=== PATIENT | male | born 1960 | race Caucasian/White ===

== ENCOUNTER 2016-12-28 15:36 | Emergency (ER) | payer MEDICAID ==
--- NOTE | 2016-12-28 15:50 | Emergency Department Record ---
History of Present Illness - General Chief Complaint: Ankle/Foot Injury Stated Complaint: TWISTED RT ANKLE Time Seen by Provider: 12/28/16 15:39 Source: Patient Mode of Arrival: Ambulatory Limitations: No limitations - History of Present Illness Initial Comments: 56 yo male presents with right ankle pain. He twisted the ankle walking on Tuesday. He has had lateral ankle and leg pain. He has pain with weight bearing. No prior ankle fracture. He has sprained the ankle before. MD Complaint: Leg injury, Ankle injury -: Days(s) (2) Injury: Leg: Right, Knee: Right Type of Injury: Eversion Place: Home Severity: Moderate Improves With: Immobilization Worsens With: Palpation, Weight bearing Context: Walking Associated Symptoms: Swelling, Able to partially bear weight - Related Data Home Medications Medication Instructions Recorded Confirmed Last Taken Aspirin [Aspirin EC] 81 mg PO QHS 01/08/15 12/28/16 02/17/15 Bumetanide 1 mg PO DAILY tab 09/22/15 12/28/16 Unknown Previous Rx's Medication Instructions Recorded Hydrocodone/Acetaminophen [[place] 1 each PO Q8H PRN #20 tablet 12/28/16 7.5-325 Tablet] Allergies Allergy/AdvReac Type Severity Reaction Status Date / Time No Known Drug Allergies Allergy Verified 12/28/16 15:49 Review of Systems Constitutional: Denies: Chills, Fever, Malaise, Weakness Eyes: Denies: Eye discharge ENT: Denies: Congestion, Throat pain Respiratory: Denies: Cough Cardiovascular: Denies: Chest pain, Syncope Endocrine: Denies: Fatigue Gastrointestinal: Denies: Abdominal pain, Diarrhea, Nausea, Vomiting Genitourinary: Denies: Dysuria, Frequency, Hematuria Musculoskeletal: Reports: Arthralgia Skin: Denies: Change in color, Rash Neurological: Denies: Confusion, Headache Psychiatric: Denies: Anxiety Hematological/Lymphatic: Denies: Blood Clots, Easy bleeding, Easy bruising, Swollen glands Past Medical History - SOCIAL HISTORY Smoking Status: Former smoker - RESPIRATORY Hx Respiratory Disorders: Yes Hx of CPAP: Yes (needs a new mask, sleep study referral made as outpatient) - CARDIOVASCULAR Hx Cardio Disorders: No Comment:: elevated cholesterol - NEURO Hx Neuro Disorders: No - GI Hx GI Disorders: No Hx Reflux: No - Hx Genitourinary Disorders: No - ENDOCRINE Hx Endocrine Disorders: No Hx Diabetes: No Hx Thyroid Disease: No - MUSCULOSKELETAL Hx Musculoskeletal Disorders: Yes Hx Arthritis: Yes Hx Gout: Yes - PSYCH Hx Psych Problems: No - HEMATOLOGY/ONCOLOGY Hx Hematology/Oncology Disorders: No Family Medical History Hx Heart Disease: Father Physical Exam - General General Appearance: Alert, Oriented x3, Cooperative - Head Head exam: Atraumatic, Normal inspection - Eye Eye exam: Normal appearance - ENT ENT exam: Normal exam Ear exam: Normal external inspection Nasal Exam: Normal inspection Mouth exam: Normal external inspection - Neck Neck exam: Normal inspection - Respiratory Respiratory exam: Normal lung sounds bilaterally. negative: Respiratory distress - Cardiovascular Cardiovascular Exam: Regular rate, Normal rhythm, Normal heart sounds Peripheral Pulses: 2+: Dorsalis Pedis (R) - Rectal Rectal exam: Deferred - exam: Deferred - Extremities Extremities exam: Normal inspection, Tenderness Image of Full Body: 1 - tender lateral ankle, very mild bruising - Back Back exam: Reports: Full ROM. Denies: Tenderness - Neurological Neurological exam: Alert, Motor sensory deficit, Oriented X3 - Psychiatric Psychiatric exam: Normal affect, Normal mood. negative: Agitated, Anxious - Skin Skin exam: Dry, Intact, Normal color, Warm. negative: Cyanosis, Diaphoretic, Erythema Course - Reevaluation(s) Reevaluation #1: The XR was reviewed No actual fracture He will be placed in a DonJoy, crutches and follow up with PCP 12/28/16 16:16 Disposition Disposition: Discharge Clinical Impression: Ankle sprain Qualifiers: Encounter type: initial encounter Involved ligament of ankle: unspecified ligament Laterality: right Qualified Code(s): S93.401A - Sprain of unspecified ligament of right ankle, initial encounter Disposition: Home, Self-Care Condition: (1) Good Instructions: Ankle Sprain (ED) Additional Instructions: Ice and elevate Use the boot and crutches Call your doctor for [id number] up and recheck in the next week Prescriptions: Hydrocodone/Acetaminophen [[place] 7.5-325 Tablet] 1 each PO Q8H PRN #20 tablet PRN Reason: Pain - General Forms: Patient Portal Access Time of Disposition: 16:18 Quality - Quality Measures Quality Measures: N/A - Blood Pressure Screening Does Patient Have Any of the Following: No Blood Pressure Classification: Normal BP Reading Systolic Measurement: 106 Diastolic Measurement: 71 Screening for High Blood Pressure: < Normal BP, F/U Not Required > [G8783]
--- NOTE | 2016-12-29 14:39 | RADIOLOGY REPORT ---
EXAM: RIGHT ANKLE, THREE VIEWS HISTORY: ANTERIOR ANKLE PAIN TWO DAYS POST INJURY. DIFFUSE SWELLING. TECHNIQUE: Three views of the right ankle were obtained. Comparison: Three views of the right ankle dated 07/22/15. Encounter: Initial. FINDINGS: There is normal bone mineralization. A chronic triangular shaped ossicle is again noted adjacent to the tip of the medial malleolus, stable. No definite new fracture deformity is seen nor is there dislocation. The ankle mortise joint is symmetric. There are mild degenerative changes of the tibiotalar joint. There is diffuse soft tissue swelling. Mild calcaneal spurring persists. IMPRESSION: 1. NO DEFINITE ACUTE FRACTURE NOR DISLOCATION WHEN COMPARED TO THE 07/22/15 EXAMINATION. CHRONIC APPEARING OSSICLE REDEMONSTRATED ADJACENT TO THE TIP OF THE MEDIAL MALLEOLUS. 2. MILD DEGENERATIVE CHANGES OF THE TIBIOTALAR JOINT. 3. DIFFUSE SOFT TISSUE SWELLING. 4. MILD CALCANEAL SPURRING REDEMONSTRATED. JOB NUMBER: [id number] [facility]
== END 2016-12-28 16:57 | disposition home or self-care (01) ==
LOC: ER 15:36
DX: S93.401A Sprain of unspecified ligament of right ankle, initial encounter (principal); X50.1XXA Overexertion from prolonged static or awkward postures, initial encounter; Y92.009 Unspecified place in unspecified non-institutional (private) residence as the place of occurrence of the external cause
CPT/HCPCS: 99283

== ENCOUNTER 2017-08-26 07:55 | Day surgery (SDC) | payer MEDICARE, MEDICAID ==
[2017-08-26] MEDS ORDERED: FENTANYL PF 100MCG/2ML VIAL IV ONE (07:56)
[2017-08-26] MEDS ORDERED: PROPOFOL 10 MG/ML VIAL IV ONE (07:56)
[2017-08-26] MEDS ORDERED: LIDOCAINE 2% MDV (20MG/ML) 20ML VIAL IV ONE (07:56)
--- NOTE | 2017-08-29 12:30 | Operative Note ---
DATE OF SURGERY: 08/26/2017 SURGEON: Parker Snider MD OPERATION: ESOPHAGOGASTRODUODENOSCOPY. INDICATIONS: This is a 57-year-old male with history of thickened esophagus who presented for esophagogastroduodenoscopy. POSTOPERATIVE DIAGNOSES: 1. Mild distal esophagitis. 2. Mild erosive gastritis. 3. Normal duodenum. ANESTHESIA: Sedation is per Anesthesia. Pulse oximetry was monitored throughout the procedure to maintain O2 saturation of 90% or greater. Supplemental oxygen was administered via nasal cannula. Cardiac and vital signs were monitored throughout the duration of the procedure, and they were stable. The procedure of esophagogastroduodenoscopy and risks and benefits of the procedure, including the risk of bleeding and perforation, among others, were explained to the patient who voiced understanding and agreed to have the procedure done. Physical examination was performed, and the patient was found stable for sedation. PROCEDURE: The patient was placed in the left lateral position. Sedation was initiated. A plastic bite block was inserted into the oral cavity. The Olympus [id number] gastroscope was introduced into the oral cavity and advanced to the proximal esophagus without difficulty. The esophageal mucosa was carefully examined upon introduction of the gastroscope. The proximal, mid, and distal esophageal mucosa appeared normal. The gastroscope was then advanced into the stomach, and surveillance of the stomach revealed diffuse erythema along the gastric body and antrum but no ulcers were noted. The gastroscope was then advanced into the descending duodenum without difficulty. The duodenal bulb and descending duodenum appeared normal. The gastroscope was then withdrawn into the stomach and retroflexion was performed. There were no other lesions noted. The gastroscope was then withdrawn while carefully examining the gastric and esophageal mucosa. No other lesions noted. At the GE junction level, there was mild Z line irregularity, and multiple biopsies were obtained. There were no mass lesions noted. The gastroscope was then withdrawn and the procedure was terminated. The patient tolerated the procedure well without any immediate complications. He remained with stable vital signs and was transferred to the recovery room. RECOMMENDATIONS: The patient is to continue on his proton pump inhibitors and I will see him back as needed. Thank you for allowing me to participate in the care of your patient. CC: EDUARD Rios
== END 2017-08-26 09:57 | disposition home or self-care (01) ==
LOC: HOP 07:55
PROVIDERS: ATTEND Internal Medicine Gastroenterology
DX: K20.9 Esophagitis, unspecified (principal); K29.60 Other gastritis without bleeding; E11.9 Type 2 diabetes mellitus without complications; Z79.84 Long term (current) use of oral hypoglycemic drugs; F41.9 Anxiety disorder, unspecified; E78.00 Pure hypercholesterolemia, unspecified
CPT/HCPCS: 43235; 00731; 88305; 88313; J3010

== ENCOUNTER 2018-09-19 10:46 | Emergency (ER) | payer MEDICARE ==
[2018-09-19] MEDS ORDERED: IPRATROPIUM/ALBUTEROL (0.5MG/3MG) NEB INH ONE (11:05)
--- NOTE | 2018-09-19 11:12 | Emergency Department Record ---
History of Present Illness - General Chief Complaint: Difficulty Breathing Stated Complaint: CHEST PAIN,SOB Time Seen by Provider: 09/19/18 10:50 Source: Patient Mode of Arrival: Wheelchair Limitations: No limitations - History of Present Illness Initial Comments: pt has been very sob this am. he also had some chest discomfort this am. MD Complaint: Chest pain, Shortness of breath Onset/Timin -: Hour(s) Consistency: Intermittent Improves With: Bronchodilators Worsens With: Exertion Known History Of: Diabetes Context: Other Associated Symptoms: Chest pain Treatments Prior to Arrival: Bronchodilator - Related Data Home Oxygen Therapy: No Previous Rx's Medication Instructions Recorded Doxycycline Hyclate 100 mg PO BID #14 cap 09/19/18 Prednisone [Prednisone 20Mg] 20 mg PO Q12HR #8 tab 09/19/18 Allergies Allergy/AdvReac Type Severity Reaction Status Date / Time No Known Drug Allergies Allergy Verified 09/19/18 10:51 Travel Screening - Travel/Exposure Within Last 30 Days Have you traveled within the last 30 days?: No - Travel/Exposure Within Last Year Have you traveled outside the [place] in the last year?: No - Additonal Travel Details Have you been exposed to anyone with a communicable illness?: No - Travel Symptoms Symptom Screening: None Review of Systems Reviewed: No additional complaints except as noted below Constitutional: Reports: As per HPI. Denies: Chills, Fever, Malaise, Night sweats, Weakness, Weight change Eyes: Reports: As per HPI. Denies: Eye discharge, Eye pain, Photophobia, Vision change ENT: Reports: As per HPI. Denies: Congestion, Dental pain, Ear pain, Epistaxis, Hearing loss, Throat pain Respiratory: Reports: As per HPI. Denies: Cough, Dyspnea, Hemoptysis, Stridor, Wheezes Cardiovascular: Reports: As per HPI. Denies: Arrhythmia, Chest pain, Dyspnea on exertion, Edema, Murmurs, Orthopnea, Palpitations, Paroxysmal nocturnal dyspnea, Rheumatic Fever, Syncope Endocrine: Reports: As per HPI. Denies: Fatigue, Heat or cold intolerance, Polydipsia, Polyuria Gastrointestinal: Reports: As per HPI. Denies: Abdominal pain, Constipation, Diarrhea, Hematemesis, Hematochezia, Melena, Nausea, Vomiting Genitourinary: Reports: As per HPI. Denies: Dysuria, Frequency, Hematuria, Incontinence, Retention, Testicular pain, Testicular mass, Urgency Musculoskeletal: Reports: As per HPI. Denies: Arthralgia, Back pain, Gout, Joint swelling, Myalgia, Neck pain Skin: Reports: As per HPI. Denies: Bruising, Change in color, Change in hair/nails, Lesions, Pruritus, Rash Neurological: Reports: As per HPI. Denies: Abnormal gait, Confusion, Headache, Numbness, Paresthesias, Seizure, Tingling, Tremors, Vertigo, Weakness Psychiatric: Reports: As per HPI. Denies: Anxiety, Auditory hallucinations, Depression, Homicidal thoughts, Suicidal thoughts, Visual hallucinations Hematological/Lymphatic: Reports: As per HPI. Denies: Anemia, Blood Clots, Easy bleeding, Easy bruising, Swollen glands Past Medical History - SOCIAL HISTORY Smoking Status: Former smoker Alcohol Use: None Drug Use: None - RESPIRATORY Hx Respiratory Disorders: Yes Hx Sleep Apnea: Yes Hx of CPAP: Yes (needs a new mask, sleep study referral made as outpatient) - CARDIOVASCULAR Hx Cardio Disorders: No Comment:: elevated cholesterol - NEURO Hx Neuro Disorders: No - GI Hx GI Disorders: No Hx Reflux: No - Hx Genitourinary Disorders: No - ENDOCRINE Hx Endocrine Disorders: No Hx Diabetes: No - MUSCULOSKELETAL Hx Musculoskeletal Disorders: Yes Hx Arthritis: Yes Hx Gout: Yes - PSYCH Hx Psych Problems: No - HEMATOLOGY/ONCOLOGY Hx Hematology/Oncology Disorders: No Family Medical History Any Significant Family History?: Yes Hx Heart Disease: Father Physical Exam - General General Appearance: Alert, Oriented x3, Cooperative, Mild distress - Head Head exam: Normal inspection - Eye Eye exam: Normal appearance, PERRL, EOMI Pupils: Normal accommodation - ENT ENT exam: Normal exam, Mucous membranes moist, Normal external ear exam, Normal orophraynx Ear exam: Normal external inspection. negative: External canal tenderness Nasal Exam: Normal inspection. negative: Discharge, Sinus tenderness Mouth exam: Normal external inspection, Tongue normal Teeth exam: Normal inspection. negative: Dental caries Throat exam: Normal inspection. negative: Tonsillar erythema, Tonsillar exudate - Neck Neck exam: Normal inspection, Full ROM. negative: Tenderness - Respiratory Respiratory exam: Normal lung sounds bilaterally. negative: Respiratory distress - Cardiovascular Cardiovascular Exam: Regular rate, Normal rhythm, Normal heart sounds - GI/Abdominal GI/Abdominal exam: Soft, Normal bowel sounds. negative: Tenderness - Rectal Rectal exam: Deferred - exam: Deferred - Extremities Extremities exam: Normal inspection, Full ROM, Normal capillary refill. negative: Tenderness - Back Back exam: Reports: Normal inspection, Full ROM. Denies: Muscle spasm, Rash noted, Tenderness - Neurological Neurological exam: Alert, CN II-XII intact, Normal gait, Oriented X3 - Psychiatric Psychiatric exam: Normal affect, Normal mood - Skin Skin exam: Dry, Intact, Normal color, Warm Course Vital Signs 09/19/18 10:57 Temperature 99.9 F H Pulse Rate 90 Respiratory 20 Rate Blood Pressure 126/84 Pulse Ox 96 - Reevaluation(s) Reevaluation #1: 09/19/18 16:01 pt feels better Medical Decision Making - Lab Data Result diagrams: 09/19/18 11:05 09/19/18 11:05 Disposition Disposition: Discharge Clinical Impression: Shortness of breath Disposition: Home, Self-Care Condition: (1) Good Instructions: Dyspnea (ED) Additional Instructions: follow up with family doctor. return sooner if worse. Prescriptions: Prednisone [Prednisone 20Mg] 20 mg PO Q12HR #8 tab Doxycycline Hyclate 100 mg PO BID #14 cap Forms: Patient Portal Access Quality - Quality Measures Quality Measures: N/A - Blood Pressure Screening Does Patient Have Any of the Following: Active Dx of HTN Blood Pressure Classification: Pre-Hypertensive BP Reading Systolic Measurement: 126 Diastolic Measurement: 84 Screening for High Blood Pressure: Patient Exclusion, Hx of HTN [G9744]
[2018-09-19 11:17] LABS: ABSOLUTE NEUTROPHIL COUNT 4.74; BASO % 0.3 % (0-6); EOS % 5.7 % (0-6); GRAN % 77.1 % (47-80); HEMATOCRIT 45.5 % (42.0-52.0); LYMPH % 8.9 % (16-45); MEAN CELL VOLUME 93.4 fl (81-97); MEAN CORPUSCULAR HEMOGLOBIN 30.8 pg (27-33); MEAN PLATELET VOLUME 9.6 fl (7.4-10.4); PLATELET COUNT 202 K/uL (130-400); RED BLOOD COUNT 4.87 M/uL (4.40-5.70); RED CELL DISTRIBUTION WIDTH 14.5 % (11.5-14.5); WHITE BLOOD COUNT W/O DIFF 6.2 K/uL (4.2-12.2)
[2018-09-19 11:26] LABS: BLOOD UREA NITROGEN 14 mg/dL (6-20)
[2018-09-19 11:27] LABS: CREATININE 0.8 mg/dL (0.7-1.2); EST GLOMERULAR FILTRATION RATE > 60 mL/min; TOTAL PROTEIN 6.8 g/dL (6.6-8.7)
[2018-09-19 11:29] LABS: GLUCOSE,RANDOM 134 mg/dL (74-109)
[2018-09-19 11:32] LABS: ALB/GLOB RATIO 1.3 (1.1-1.8); ALBUMIN 3.9 g/dL (4.0-5.0); ALKALINE PHOSPHATASE 96 U/L (40-129); ALT/SGPT 44 U/L (<41); AST/SGOT 43 U/L (10.0-50.0)
[2018-09-19 11:39] LABS: URINE APPEARANCE CLEAR; URINE BILIRUBIN NEGATIVE (NEGATIVE); URINE BLOOD NEGATIVE (NEGATIVE); URINE COLOR YELLOW; URINE GLUCOSE (UA) NEGATIVE (NEGATIVE); URINE KETONE NEGATIVE (NEGATIVE); URINE LEUKOCYTE ESTERASE NEGATIVE (NEGATIVE); URINE PROTEIN NEGATIVE (NEGATIVE); URINE UROBILINOGEN 0.2 E.U./dL (0.20 - 1.00)
[2018-09-19 11:45] LABS: URINE NITRITE NEGATIVE (NEGATIVE)
[2018-09-19] MEDS ORDERED: LORAZEPAM 2 MG/ML VIAL IV ONE ×2 (12:08→13:07)
[2018-09-19] MEDS ORDERED: METHYLPREDNISOLONE PF 125MG/VIAL IVP ONE (15:45)
[2018-09-19] MEDS ORDERED: ALBUTEROL SULFATE (0.083%) 2.5 MG/3 ML NEB INH ONE (15:45)
--- NOTE | 2018-09-20 10:05 | CT ANGIOGRAM REPORT ---
EXAM: CT ANGIOGRAM OF THE CHEST WITH POST PROCESSING HISTORY: SHORTNESS OF BREATH. ELEVATED D-DIMER. TECHNIQUE: Routine CTA examination of the chest was performed utilizing a pulmonary embolus protocol with 95 ml of Omnipaque 350 utilized. Coronal and sagittal maximum intensity projection reformatted images are generated and reviewed. Comparison: Two view chest radiographic examination dated 04/12/18. CT angiogram of the chest dated 06/06/14. FINDINGS: Opacification of the pulmonary arteries is satisfactory for interpretation though evaluation of segmental arteries in both the upper and lower lungs is limited by motion artifact. No definite luminal filling defect is demonstrated within the outflow track, main arteries, lobar arteries, nor the proximal segmental arteries that are unaffected by motion artifact to suggest acute pulmonary embolic disease. Post median sternotomy changes are present. The heart is enlarged. No evidence of acute right heart strain. There is diffuse atherosclerosis of the thoracic aorta. The ascending thoracic aorta is mildly ectatic measuring 4.3 cm in diameter. No convincing evidence of dissection. No new mediastinal or hilar mass/lymphadenopathy is seen. 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 The trachea is narrowed at the level of the upper mediastinum in the AP diameter. This pattern is unchanged and may relate to tracheal malacia. There is apparent wall thickening of the distal esophagus redemonstrated. This segment appears prominent in caliber. The etiology of this is uncertain. A mucosal abnormality cannot be excluded. Mild dependent atelectasis in each lung base. No lung consolidation. There is redemonstration of a subpleural nodule in the lateral aspect of the right lower lobe as seen on series 2 image 139. This measures 5.6 mm in maximum diameter. On the prior examination, this measures 5.4 mm. No pleural or pericardial effusion. Bilateral gynecomastia. The right adrenal gland is normal in appearance. There is redemonstration of a left adrenal gland mass measuring 3.2 x 1.9 cm. Given differences in technique, this is not significantly changed. It is incompletely imaged. It is nonspecific, but likely an adenoma. No new lytic or blastic bone lesion. IMPRESSION: 1. NO ACUTE PULMONARY EMBOLUS IDENTIFIED THOUGH EVALUATION OF THE SEGMENTAL ARTERIES OF THE UPPER AND LOWER LUNGS IS LIMITED BY MOTION ARTIFACT. 2. POST MEDIAN STERNOTOMY CHANGES. CARDIOMEGALY REDEMONSTRATED. ECTASIA OF THE ASCENDING THORACIC AORTA REDEMONSTRATED MEASURING 4.3 CM. 3. MEDIASTINAL LIPOMATOSUS REDEMONSTRATED. THERE IS AGAIN NOTED NARROWING OF THE TRACHEA IN THE UPPER MEDIASTINUM IN THE AP PLANE, THE PATTERN OF WHICH IS UNCHANGED. THIS MAY RELATE TO TRACHEAL MALACIA. 4. APPARENT WALL THICKENING OF THE DISTAL ESOPHAGUS APPEARING SOMEWHAT PROMINENT IN CALIBER. THE ETIOLOGY OF THIS IS UNCERTAIN. MUCOSAL ABNORMALITY IS NOT EXCLUDED. THIS COULD RELATE TO ACHALASIA. IF CLINICALLY WARRANTED THIS COULD BE FURTHER EVALUATED WITH DIRECT VISUALIZATION OR FLUOROSCOPIC BARIUM EXAMINATION. 5. SUBPLEURAL NODULE IN THE LATERAL ASPECT OF THE RIGHT LOWER LOBE MEASURES EQUIVOCALLY LARGER THAN ON THE [address] SURVEILLANCE RECOMMENDED. 6. STABLE LEFT ADRENAL GLAND MASS. THIS IS LIKELY AN ADENOMA. JOB NUMBER: [id number] [facility]
--- NOTE | 2018-09-20 10:25 | CT SCAN REPORT ---
EXAM: CT OF THE BRAIN WITHOUT CONTRAST HISTORY: VERTIGO. DIZZINESS. TECHNIQUE: Routine noncontrast CT examination of the brain was obtained. Comparison: None. FINDINGS: Evaluation of the posterior fossa is limited by increased image noise. The ventricles and subarachnoid spaces are normal in size. No convincing area of abnormally increased or decreased attenuation is noted throughout the brain substance. The sands white interfaces are distinct. No abnormal extraaxial fluid collection. No acute skull abnormality. The visualized paranasal sinuses and mastoid air cells are clear. The orbits as visualized are unremarkable. There is mild CSF density prominence in the sella turcica with apparent flattening of the pituitary gland in the craniocaudad dimension consistent with a partially empty sella, a normal variant. There are moderate hypertrophic changes of the atlantodental joint. There are periapical lucencies involving what is likely a right maxillary premolar and a right maxillary molar. These may relate to dental abscesses. IMPRESSION: 1. NO CT EVIDENCE OF AN ACUTE INTRACRANIAL ABNORMALITY. 2. PERIAPICAL LUCENCIES INVOLVING A COUPLE RIGHT MAXILLARY TEETH RAISING THE POSSIBILITY OF DENTAL ABSCESSES. JOB NUMBER: [id number] [facility]
== END 2018-09-19 16:17 | disposition home or self-care (01) ==
LOC: ER 10:46
DX: R06.02 Shortness of breath (principal); R07.89 Other chest pain; R42 Dizziness and giddiness; R79.89 Other specified abnormal findings of blood chemistry; I10 Essential (primary) hypertension; E11.9 Type 2 diabetes mellitus without complications; Z87.891 Personal history of nicotine dependence
CPT/HCPCS: 70450; 71275; 80053; 81003; 83880; 84484; 85025; 85379; 93005; 93010; 94640; 96374; 96375; 96376; 99284; J2930; J7613